=== PATIENT | male | born 1995 | race Two or more races ===

== ENCOUNTER 2020-09-11 07:07 | Outpatient (CLI) | payer OTHER | END 2020-09-11 07:19 | disposition home or self-care (01) | LOC: RAD 07:07 | PROVIDERS: ATTEND Family Medicine | DX: G89.11 Acute pain due to trauma (principal) ==

== ENCOUNTER 2021-03-26 08:05 | Outpatient (CLI) | payer OTHER | END 2021-03-26 08:20 | disposition home or self-care (01) | LOC: MRI 08:05 | PROVIDERS: ATTEND Orthopaedic Surgery | DX: M25.562 Pain in left knee (principal) | CPT/HCPCS: 73721 ==

== ENCOUNTER 2022-03-20 07:40 | Outpatient (CLI) | payer OTHER | END 2022-03-20 08:01 | disposition home or self-care (01) | LOC: MRI 07:40 | PROVIDERS: ATTEND Orthopaedic Surgery | DX: S83.201A Bucket-handle tear of unspecified meniscus, current injury, left knee, initial encounter (principal) | CPT/HCPCS: 73721 ==

== ENCOUNTER 2022-03-26 15:31 | Outpatient (CLI) | payer OTHER | END 2022-03-26 15:42 | disposition home or self-care (01) | LOC: RAD 15:31 | DX: M25.571 Pain in right ankle and joints of right foot (principal); S93.401A Sprain of unspecified ligament of right ankle, initial encounter ==

== ENCOUNTER 2023-04-18 11:19 | Outpatient (CLI) | payer OTHER | END 2023-04-18 11:25 | disposition home or self-care (01) | LOC: RAD 11:19 | DX: M99.01 Segmental and somatic dysfunction of cervical region (principal); M99.02 Segmental and somatic dysfunction of thoracic region; M99.03 Segmental and somatic dysfunction of lumbar region; M99.05 Segmental and somatic dysfunction of pelvic region ==